=== PATIENT | female | born 1995 | race Caucasian/White ===

== ENCOUNTER 2024-11-03 00:02 | Emergency (ER) | payer SELFPAY ==
[~2024-11-03] VITALS: Ht 157.5 cm; Wt 99.8 kg
[2024-11-03] MEDS: ONDANSETRON ODT 4 MG TAB.RAPDIS SL ONE (00:46)
[2024-11-03] MEDS: ACETAMINOPHEN 500 MG TABLET PO ONE (00:46)
[2024-11-03 02:21] VITALS: BP 126/76; TEMP 98.1; O2SAT 98
== END 2024-11-03 02:24 | disposition home or self-care (01) ==
LOC: ER 00:13
DX: S06.0X0A Concussion without loss of consciousness, initial encounter (principal); S93.492A Sprain of other ligament of left ankle, initial encounter; S30.0XXA Contusion of lower back and pelvis, initial encounter; R11.2 Nausea with vomiting, unspecified; R51.9 Headache, unspecified; W01.0XXA Fall on same level from slipping, tripping and stumbling without subsequent striking against object, initial encounter; Y93.89 Activity, other specified; Y92.89 Other specified places as the place of occurrence of the external cause; Y99.8 Other external cause status
CPT/HCPCS: 70450; 72192; 73600; A4606; A4663; A9150; Q0162